=== PATIENT | female | born 1990 | race Two or more races ===

== ENCOUNTER 2020-05-16 17:41 | Inpatient (IN) | payer MEDICAID, OTHER ==
[~2020-05-16] VITALS: Ht 149.9 cm; Wt 53.1 kg
[2020-05-16 18:29] LABS: Basophils # (auto) 0.1 10 ^3/uL (0-0.2); Eosinophils # (auto) 0 10 ^3/uL (0-0.8); Mean Corpuscular Hgb Conc. 33.2 g/dL (32.0-36.0); Monocytes # (auto) 0.2 10 ^3/uL (0-1.3); Monocytes % (auto) 2.4 % (0.0-12.0); Neutrophils # (auto) 8.6 10 ^3/uL (1.6-8.6); White Blood Cell 9.9 10^3/uL (4.4-10.8)
[2020-05-16 18:31] LABS: Eosinophils % (auto) 0.1 % (0.0-7.0); Hematocrit 51.1 % (36.0-46.0); Lymphocytes % (auto) 10.4 % (10.0-50.0); Mean Corpuscular Hemoglobin 29.6 pg (28.0-32.0); Mean Corpuscular Volume 89.2 fL (80.0-100.0); Neutrophils % (auto) 86.1 % (37.0-80.0); Nucleated Red Blood Cells % 0.2 %; Platelet Count (auto) 451 10^3/uL (140-450); Red Blood Cells 5.73 10^6/uL (4.0-5.20); Red Cell Distribution Width 15.4 % (11.8-14.3)
[2020-05-16 18:57] LABS: Albumin 4.6 g/dL (3.4-5.0); Calcium 9.1 mg/dL (8.5-10.1); Potassium 3.8 mmol/L (3.5-5.1)
[2020-05-16 19:00] LABS: BUN/Creatinine Ratio 14.6; Bilirubin, Total 0.5 mg/dL (0.2-1.0); Total Protein 8.9 g/dL (6.4-8.2)
[2020-05-16] MEDS ORDERED: SODIUM CHLORIDE 0.9% 2,000 ML IV ONE (19:00)
[2020-05-16] MEDS ORDERED: InsuLIN REG 1unit/0.01ml Soln (100units/ml) IV ONE ×2 (20:15→22:15)
[2020-05-16] MEDS ORDERED: SODIUM BICARBONATE 8.4 % INJ 50ML VIAL IV ONE (20:15)
[2020-05-16] MEDS ORDERED: SODIUM CHLORIDE 0.9% 1,000 ML IV ONE (22:15)
[2020-05-16] MEDS ORDERED: INSULIN LANTUS (GLARGINE) 1 /0.01ml (100units/ml) SC ONE (22:30)
[2020-05-16] MEDS ORDERED: DEXTROSE (50%) 50ML SYRG IV PRN (22:30)
[2020-05-16] MEDS: ACCU-CHEK COMFORT CURVE STRIP VI SCH (22:46)
[2020-05-16] MEDS: InsuLIN R (HUMAN) 100 UNITS in SODIUM CHL 0.9% 99 ML IV SCH (22:58)
[2020-05-16] MEDS ORDERED: SODIUM BICARBONATE 50ML VIAL 50 ML in SOD CHL 0.45% 1,000 ML IV ONE (23:45)
[2020-05-17] MEDS: ACCU-CHEK COMFORT CURVE STRIP VI SCH ×15 (00:27→22:22)
[2020-05-17] MEDS: InsuLIN R (HUMAN) 100 UNITS in SODIUM CHL 0.9% 99 ML IV SCH ×5 (00:27→06:48)
[2020-05-17 04:24] LABS: BUN/Creatinine Ratio 13.9; Calcium 8.5 mg/dL (8.5-10.1)
[2020-05-17 04:31] LABS: Potassium 2.9 mmol/L (3.5-5.1)
[2020-05-17] MEDS ORDERED: NITROGLYCERIN 0.4 MG SL TAB SL PRN (05:00)
[2020-05-17] MEDS ORDERED: SOD CHL 0.45% 1,000 ML IV SCH (05:00)
[2020-05-17] MEDS ORDERED: INSULIN LANTUS (GLARGINE) 1 /0.01ml (100units/ml) SC ONE (05:00)
[2020-05-17] MEDS ORDERED: DEXTROSE (50%) 50ML SYRG IV PRN ×2 (05:00→09:45)
[2020-05-17 07:33] LABS: Sodium 144 mmol/L (136-145)
[2020-05-17 07:34] LABS: Anion Gap 13 (5-15); Carbon Dioxide 16 mmol/L (21-32); Chloride 115 mmol/L (98-107); Potassium 2.4 mmol/L (3.5-5.1)
[2020-05-17 07:35] LABS: BUN/Creatinine Ratio 12.8; Blood Urea Nitrogen 11 mg/dL (7-18); Calcium 8.7 mg/dL (8.5-10.1); GFR African American 101 mL/min; GFR Non-African American 84 mL/min; Glucose 249 mg/dL (74-106)
[2020-05-17] MEDS ORDERED: InsuLIN REG 1unit/0.01ml Soln (100units/ml) SC SCH (08:00)
[2020-05-17] MEDS ORDERED: ACCU-CHEK COMFORT CURVE STRIP VI SCH (08:00)
[2020-05-17] MEDS ORDERED: POTASSIUM CHLORIDE 20 MEQ in SOD CHL 0.45% 1,000 ML IV SCH (08:30)
[2020-05-17] MEDS: POTASSIUM CHL 20MEQ/100ML 100 ML IV SCH ×2 (08:44→10:36)
[2020-05-17] MEDS: MAGNESIUM SULFATE 1GM/100ML 100 ML IV SCH ×4 (08:54→20:20)
[2020-05-17] MEDS ORDERED: POTASSIUM CHLORIDE 60 MEQ, LIDOCAINE 1% (LOCAL ANESTH.) 6 ML in SODIUM CHL 0.9% 500 ML IV ONE (09:30)
[2020-05-17] MEDS ORDERED: InsuLIN R (HUMAN) 100 UNITS in SODIUM CHL 0.9% 99 ML IV SCH (09:45)
[2020-05-17] MEDS ORDERED: INSULIN LANTUS (GLARGINE) 1 /0.01ml (100units/ml) SC SCH (10:00)
[2020-05-17] MEDS: MORPHINE SULF INJ 2 MG/ML SYRINGE 1ML IV PRN ×2 (10:37→13:52)
[2020-05-17] MEDS: ONDANSETRON HCL 4 MG/2 ML VIAL IV PRN ×2 (10:37→16:40)
[2020-05-17 10:51] LABS: Magnesium 1.8 mg/dL (1.6-2.6)
[2020-05-17 10:58] LABS: Phosphorus 0.4 mg/dL (2.5-4.90)
[2020-05-17] MEDS ORDERED: POTASSIUM PHOSPHATE 26.4 MEQ in SODIUM CHL 0.9% 100 ML IV ONE (11:45)
[2020-05-17] MEDS ORDERED: LACTULOSE 20Gm/30ML SOLN PO ONE (14:30)
[2020-05-17] MEDS ORDERED: PANTOPRAZOLE 40 MG TAB PO ONE (14:30)
[2020-05-17] MEDS ORDERED: LACTULOSE 20Gm/30ML SOLN PO PRN (14:45)
[2020-05-17] MEDS: D5W/SOD CHL 0.45%/KCL 20MEQ 1,000 ML IV SCH ×2 (14:46→20:27)
[2020-05-17 18:51] LABS: Magnesium 1.7 mg/dL (1.6-2.6)
[2020-05-17 18:53] LABS: Phosphorus 0.9 mg/dL (2.5-4.90)
[2020-05-17] MEDS ORDERED: POTASSIUM PHOSPHATE 44 MEQ in D5W 5% 250 ML IV ONE (19:00)
[2020-05-17 19:33] LABS: Albumin 3.5 g/dL (3.4-5.0); Calcium 8.2 mg/dL (8.5-10.1)
[2020-05-17 19:36] LABS: Bilirubin, Total 0.5 mg/dL (0.2-1.0)
[2020-05-17 19:37] LABS: Potassium 2.5 mmol/L (3.5-5.1)
[2020-05-17] MEDS ORDERED: POTASSIUM CHLORIDE 80 MEQ, LIDOCAINE 1% (LOCAL ANESTH.) 6 ML in SODIUM CHL 0.9% 500 ML IV ONE (19:45)
[2020-05-17] MEDS: INSULIN LANTUS (GLARGINE) 1 /0.01ml (100units/ml) SC SCH (20:27)
[2020-05-17] MEDS: PANTOPRAZOLE 40 MG TAB PO SCH (20:32)
[2020-05-18] MEDS: ACCU-CHEK COMFORT CURVE STRIP VI SCH ×5 (00:24→17:35)
[2020-05-18 01:02] LABS: Albumin 3.3 g/dL (3.4-5.0); BUN/Creatinine Ratio 8.7; Calcium 7.1 mg/dL (8.5-10.1); Magnesium 1.8 mg/dL (1.6-2.6)
[2020-05-18 01:04] LABS: Bilirubin, Total 0.4 mg/dL (0.2-1.0); Phosphorus 1.9 mg/dL (2.5-4.90); Total Protein 6.1 g/dL (6.4-8.2)
[2020-05-18 01:06] LABS: Potassium 2.6 mmol/L (3.5-5.1)
[2020-05-18] MEDS ORDERED: DEXTROSE (50%) 50ML SYRG IV PRN (02:30)
[2020-05-18] MEDS ORDERED: POTASSIUM CHL 20 Meq TABLET PO ONE ×3 (02:30→07:00)
[2020-05-18] MEDS: SODIUM CHLORIDE 0.9% 1,000 ML IV SCH ×3 (02:46→22:30)
[2020-05-18] MEDS: MORPHINE SULF INJ 2 MG/ML SYRINGE 1ML IV PRN ×6 (02:52→20:00)
[2020-05-18] MEDS: POTASSIUM CHL 20MEQ/100ML 100 ML IV SCH ×4 (03:30→21:56)
[2020-05-18] MEDS: InsuLIN REG 1unit/0.01ml Soln (100units/ml) SC SCH ×3 (06:30→18:00)
[2020-05-18] MEDS ORDERED: POTASSIUM CHLORIDE 80 MEQ, LIDOCAINE 1% (LOCAL ANESTH.) 6 ML in SODIUM CHL 0.9% 500 ML IV ONE (07:15)
[2020-05-18 07:20] LABS: Basophils # (auto) 0.1 10 ^3/uL (0-0.2); Basophils % (auto) 0.3 % (0.0-2.0); Eosinophils # (auto) 0 10 ^3/uL (0-0.8); Hematocrit 39.3 % (36.0-46.0); Lymphocytes # (auto) 1.7 10 ^3/uL (0.4-5.4); Lymphocytes % (auto) 11.5 % (10.0-50.0); Mean Corpuscular Hemoglobin 29.7 pg (28.0-32.0); Mean Corpuscular Hgb Conc. 35.6 g/dL (32.0-36.0); Mean Corpuscular Volume 83.4 fL (80.0-100.0); Monocytes # (auto) 0.7 10 ^3/uL (0-1.3); Monocytes % (auto) 4.8 % (0.0-12.0); Neutrophils # (auto) 12.4 10 ^3/uL (1.6-8.6); Neutrophils % (auto) 83.4 % (37.0-80.0); Nucleated Red Blood Cells % 0.1 %; Platelet Count (auto) 276 10^3/uL (140-450); Red Cell Distribution Width 15.2 % (11.8-14.3); White Blood Cell 14.9 10^3/uL (4.4-10.8)
[2020-05-18 07:28] LABS: Urine Bacteria FEW /hpf (None Seen); Urine Blood Negative /uL (Negative); Urine Hyaline Cast FEW /lpf (0 - 2); Urine Mucus FEW (None Seen); Urine Specific Gravity 1.012 (1.001-1.035); Urine WBC 12 /hpf (0 - 5)
[2020-05-18 07:37] LABS: Albumin 3.3 g/dL (3.4-5.0); Bilirubin, Total 0.6 mg/dL (0.2-1.0); Calcium 7.1 mg/dL (8.5-10.1); Magnesium 1.6 mg/dL (1.6-2.6); Phosphorus 1.6 mg/dL (2.5-4.90); Total Protein 6.3 g/dL (6.4-8.2)
[2020-05-18 07:46] LABS: Potassium 2.7 mmol/L (3.5-5.1)
[2020-05-18] MEDS: PANTOPRAZOLE 40 MG TAB PO SCH ×2 (08:37→21:56)
[2020-05-18] MEDS: INSULIN LANTUS (GLARGINE) 1 /0.01ml (100units/ml) SC SCH (08:43)
[2020-05-18] MEDS ORDERED: PANTOPRAZOLE 40 MG TAB PO SCH (10:00)
[2020-05-18] MEDS ORDERED: cefTRIAXone 1GM/50ML D5W 50 ML IV ONE (10:00)
[2020-05-18] MEDS: MAGNESIUM SULFATE 1GM/100ML 100 ML IV SCH ×2 (10:10→11:03)
[2020-05-18] MEDS ORDERED: POTASSIUM PHOSPHATE 26.4 MEQ in SODIUM CHL 0.9% 100 ML IV ONE (10:15)
[2020-05-18] MEDS: HYOSCYAMINE SULF 0.125 MG ODT TAB PO PRN (13:44)
[2020-05-18 14:57] LABS: Potassium 3.3 mmol/L (3.5-5.1)
[2020-05-18 15:13] LABS: Albumin 3.3 g/dL (3.4-5.0); BUN/Creatinine Ratio 2.6; Bilirubin, Total 0.6 mg/dL (0.2-1.0); Calcium 7.6 mg/dL (8.5-10.1); Phosphorus 1.8 mg/dL (2.5-4.90); Total Protein 6.4 g/dL (6.4-8.2)
[2020-05-18] MEDS: ONDANSETRON HCL 4 MG/2 ML VIAL IV PRN ×2 (15:57→21:57)
[2020-05-18 16:04] VITALS: BP 135/93
[2020-05-18 18:48] LABS: Albumin 3.7 g/dL (3.4-5.0); Anion Gap 10 (5-15); Blood Urea Nitrogen < 1 mg/dL (7-18); Calcium 8.3 mg/dL (8.5-10.1); Carbon Dioxide 28 mmol/L (21-32); Chloride 94 mmol/L (98-107); Glucose 79 mg/dL (74-106); Magnesium 1.9 mg/dL (1.6-2.6); Sodium 132 mmol/L (136-145)
[2020-05-18 18:52] LABS: Alanine Aminotransferase 19 U/L (13-56); Alkaline Phosphatase 71 U/L (45-117); Aspartate Aminotransferase 14 U/L (15-37); Bilirubin, Total 0.8 mg/dL (0.2-1.0); GFR African American 328 mL/min; GFR Non-African American 271 mL/min; Phosphorus 1.9 mg/dL (2.5-4.90); Total Protein 7.2 g/dL (6.4-8.2)
[2020-05-18 18:56] LABS: BUN/Creatinine Ratio 3.2; Potassium 2.7 mmol/L (3.5-5.1)
[2020-05-18] MEDS: LACTULOSE 20Gm/30ML SOLN PO PRN (19:12)
[2020-05-18] MEDS: MAGNESIUM OXIDE 400 MG TAB PO SCH (21:56)
[2020-05-18 22:00] VITALS: BP 138/91
[2020-05-19] MEDS: ACCU-CHEK COMFORT CURVE STRIP VI SCH ×5 (00:24→23:25)
[2020-05-19] MEDS: POTASSIUM CHL 20MEQ/100ML 100 ML IV SCH ×2 (00:24→02:28)
[2020-05-19] MEDS: MORPHINE SULF INJ 2 MG/ML SYRINGE 1ML IV PRN ×3 (00:33→09:55)
[2020-05-19] MEDS: SODIUM CHLORIDE 0.9% 1,000 ML IV SCH ×2 (00:50→18:04)
[2020-05-19 01:06] LABS: Alanine Aminotransferase 19 U/L (13-56); Albumin 3.4 g/dL (3.4-5.0); Anion Gap 11 (5-15); Aspartate Aminotransferase 23 U/L (15-37); BUN/Creatinine Ratio 4.2; Blood Urea Nitrogen 1 mg/dL (7-18); Calcium 7.9 mg/dL (8.5-10.1); Carbon Dioxide 26 mmol/L (21-32); Chloride 95 mmol/L (98-107); GFR African American 441 mL/min; GFR Non-African American 364 mL/min; Glucose 90 mg/dL (74-106); Potassium 3.4 mmol/L (3.5-5.1); Sodium 132 mmol/L (136-145)
[2020-05-19 01:09] LABS: Alkaline Phosphatase 64 U/L (45-117); Bilirubin, Total 0.8 mg/dL (0.2-1.0); Total Protein 6.4 g/dL (6.4-8.2)
[2020-05-19] MEDS: LACTULOSE 20Gm/30ML SOLN PO PRN ×2 (03:40→19:20)
[2020-05-19] MEDS: HYOSCYAMINE SULF 0.125 MG ODT TAB PO PRN (03:40)
[2020-05-19] MEDS: ONDANSETRON HCL 4 MG/2 ML VIAL IV PRN (04:44)
[2020-05-19] MEDS: InsuLIN REG 1unit/0.01ml Soln (100units/ml) SC SCH ×5 (04:47→23:45)
[2020-05-19 05:00] VITALS: BP 127/90
[2020-05-19] MEDS ORDERED: MORPHINE SULF INJ 2 MG/ML SYRINGE 1ML IV ONE (06:00)
[2020-05-19] MEDS: PROMETHAZINE HCL 25 MG/ML 1ML IV PRN ×3 (06:20→20:57)
[2020-05-19 06:50] LABS: Potassium 3.1 mmol/L (3.5-5.1)
[2020-05-19 06:56] LABS: Albumin 3.4 g/dL (3.4-5.0); BUN/Creatinine Ratio 3.2; Bilirubin, Total 0.9 mg/dL (0.2-1.0); Calcium 8.3 mg/dL (8.5-10.1); Total Protein 6.7 g/dL (6.4-8.2)
[2020-05-19 08:00] VITALS: BP 131/88
[2020-05-19] MEDS: cefTRIAXone 1GM/50ML D5W 50 ML IV SCH (09:42)
[2020-05-19] MEDS: PANTOPRAZOLE 40 MG TAB PO SCH ×2 (09:42→23:25)
[2020-05-19] MEDS: MAGNESIUM OXIDE 400 MG TAB PO SCH ×2 (09:43→23:24)
[2020-05-19] MEDS: INSULIN LANTUS (GLARGINE) 1 /0.01ml (100units/ml) SC SCH (12:38)
[2020-05-19 13:03] LABS: Albumin 3.6 g/dL (3.4-5.0); Calcium 8.7 mg/dL (8.5-10.1); Potassium 3.2 mmol/L (3.5-5.1)
[2020-05-19 13:06] LABS: BUN/Creatinine Ratio 6.3; Bilirubin, Total 0.8 mg/dL (0.2-1.0); Total Protein 7.1 g/dL (6.4-8.2)
[2020-05-19] MEDS: MORPHINE SULFATE 4 MG/ML SYR/VIAL IV PRN ×2 (15:59→20:58)
[2020-05-19 22:00] VITALS: BP 139/92
[2020-05-20] MEDS: MORPHINE SULFATE 4 MG/ML SYR/VIAL IV PRN (01:28)
[2020-05-20 04:38] VITALS: BP 154/73
[2020-05-20] MEDS: SODIUM CHLORIDE 0.9% 1,000 ML IV SCH ×2 (04:57→14:30)
[2020-05-20] MEDS: ACCU-CHEK COMFORT CURVE STRIP VI SCH ×3 (06:46→18:00)
[2020-05-20] MEDS: InsuLIN REG 1unit/0.01ml Soln (100units/ml) SC SCH ×3 (06:48→18:40)
[2020-05-20 06:50] VITALS: BP 134/96
[2020-05-20] MEDS ORDERED: SODIUM CHLORIDE LOCK 10 ML ONE (07:58)
[2020-05-20] MEDS ORDERED: diphenhdrAMINE HCL 50 MG/1 ML VL ONE (07:59)
[2020-05-20] MEDS ORDERED: LIDOCAINE VISCOUS 2% 15ML UD ONE (07:59)
[2020-05-20 08:00] VITALS: BP 148/89
[2020-05-20 09:29] LABS: INR 1.15 (0.9-1.15); Partial Thromboplastin Time 26.8 sec (23.0-31.2)
[2020-05-20] MEDS: MIDAZOLAM HCL 5 MG/ML-1ML VIAL ONE ×2 (09:41→09:44)
[2020-05-20] MEDS: fentaNYL CITRATE 100 MCG/2 ML VL ONE ×2 (09:41→09:44)
[2020-05-20] MEDS ORDERED: ONDANSETRON HCL 4 MG/2 ML VIAL ONE (09:41)
[2020-05-20] MEDS: PANTOPRAZOLE 40 MG TAB PO SCH (10:00)
[2020-05-20] MEDS: MAGNESIUM OXIDE 400 MG TAB PO SCH (10:00)
[2020-05-20] MEDS: INSULIN LANTUS (GLARGINE) 1 /0.01ml (100units/ml) SC SCH (10:00)
[2020-05-20] MEDS: SUCRALFATE 1 GM/10 ML ORAL SUSP PO SCH ×2 (11:30→16:40)
[2020-05-20] MEDS: cefTRIAXone 1GM/50ML D5W 50 ML IV SCH (12:13)
[2020-05-20 14:40] LABS: BUN/Creatinine Ratio 12.5; Calcium 8.6 mg/dL (8.5-10.1)
[2020-05-20 14:48] LABS: Potassium 2.6 mmol/L (3.5-5.1)
[2020-05-20] MEDS ORDERED: POTASSIUM CHL 20MEQ/100ML 100 ML IV ONE (15:00)
[2020-05-20] MEDS ORDERED: POTASSIUM CHL 20 Meq TABLET PO ONE (15:00)
[2020-05-20 16:00] VITALS: BP 144/91
[2020-05-20 22:00] VITALS: BP 119/99
[2020-05-20 23:12] VITALS: BP 119/99
== END 2020-05-20 23:59 | disposition home or self-care (01) | DRG 241 ==
LOC: ER 17:41 → EDBD 17:41 → OVERFLOW 17:42 → TELE-CENTR 05-18 15:39
PROVIDERS: ADMIT Internal Medicine; ATTEND Internal Medicine
PROC: 0DB68ZX Excision of Stomach, Via Natural or Artificial Opening Endoscopic, Diagnostic (ICD-10-PCS; principal; 2020-05-20 09:45)
DX: K29.70 Gastritis, unspecified, without bleeding (principal); K80.20 Calculus of gallbladder without cholecystitis without obstruction; K57.90 Diverticulosis of intestine, part unspecified, without perforation or abscess without bleeding; E11.10 Type 2 diabetes mellitus with ketoacidosis without coma; E87.6 Hypokalemia; Z20.822 Contact with and (suspected) exposure to COVID-19; B96.81 Helicobacter pylori [H. pylori] as the cause of diseases classified elsewhere; F32.9 Major depressive disorder, single episode, unspecified; K59.00 Constipation, unspecified; Z79.4 Long term (current) use of insulin; Z91.19 Patient's noncompliance with other medical treatment and regimen
CPT/HCPCS: 36415; 36600; 43239; 71045; 74176; 76700; 80048; 80053; 81001; 81025; 82010; 82150; 82805; 82962; 83605; 83690; 83735; 83880; 84100; 84702; 85025; 85610; 85730; 87040; 87086; 87426; 96361; 96372; 96374; 96375; 96376; 99291; G0378; J0696; J1815; J2001; J2250; J2405; J3480; J7060

== ENCOUNTER 2021-04-12 14:24 | Emergency (ER) | payer MEDICAID ==
[~2021-04-12] VITALS: Ht 149.9 cm; Wt 54.9 kg
[2021-04-12] MEDS ORDERED: SODIUM CHLORIDE 0.9% 1,000 ML IV ONE (15:00)
[2021-04-12 15:28] LABS: Basophils # (auto) 0 10 ^3/uL (0-0.2); Basophils % (auto) 1.1 % (0.0-2.0); Eosinophils # (auto) 0.1 10 ^3/uL (0-0.8); Lymphocytes # (auto) 1.5 10 ^3/uL (0.4-5.4)
[2021-04-12 15:30] LABS: Eosinophils % (auto) 1.3 % (0.0-7.0); Hematocrit 35.2 % (36.0-46.0); Hemoglobin 11.4 g/dL (12.2-16.2); Lymphocytes % (auto) 36.8 % (10.0-50.0); Mean Corpuscular Hemoglobin 23.6 pg (28.0-32.0); Mean Corpuscular Hgb Conc. 32.3 g/dL (32.0-36.0); Mean Corpuscular Volume 73.2 fL (80.0-100.0); Monocytes # (auto) 0.3 10 ^3/uL (0-1.3); Monocytes % (auto) 8.6 % (0.0-12.0); Neutrophils # (auto) 2.1 10 ^3/uL (1.6-8.6); Neutrophils % (auto) 52.2 % (37.0-80.0); Nucleated Red Blood Cells % 0.1 %; Red Blood Cells 4.82 10^6/uL (4.0-5.20); Red Cell Distribution Width 16.1 % (11.8-14.3)
[2021-04-12 15:51] LABS: Urine Bacteria NONE SEEN /hpf (None Seen); Urine Blood Negative /uL (Negative); Urine Specific Gravity 1.038 (1.001-1.035); Urine WBC <1 /hpf (0 - 5)
[2021-04-12 15:57] LABS: Albumin 3.5 g/dL (3.4-5.0); Calcium 9.1 mg/dL (8.5-10.1); Potassium 4.1 mmol/L (3.5-5.1)
[2021-04-12 16:02] LABS: BUN/Creatinine Ratio 29.5; Bilirubin, Total 0.3 mg/dL (0.2-1.0); Total Protein 7.9 g/dL (6.4-8.2)
[2021-04-12] MEDS ORDERED: InsuLIN REG 1unit/0.01ml Soln (100units/ml) IV ONE ×3 (16:15→19:45)
[2021-04-13] MEDS ORDERED: SODIUM CHLORIDE 0.9% 1,000 ML IV ONE
[2021-04-13] MEDS ORDERED: InsuLIN REG 1unit/0.01ml Soln (100units/ml) IV ONE (02:15)
[2021-04-13 04:21] VITALS: BP 109/71
== END 2021-04-13 04:26 ==
LOC: EDBD 14:24 → ER 14:24
DX: E11.65 Type 2 diabetes mellitus with hyperglycemia (principal); R45.851 Suicidal ideations; E11.43 Type 2 diabetes mellitus with diabetic autonomic (poly)neuropathy; K31.84 Gastroparesis
CPT/HCPCS: 36415; 71045; 80053; 81001; 81025; 82962; 84484; 85025; 93005; 96361; 96374; 96376; 99285; J1815